=== PATIENT | male | born 1940 | race Caucasian/White ===

== ENCOUNTER 2020-01-29 16:05 | Outpatient (REF) | payer MEDICARE, SELFPAY ==
[2020-01-29 17:32] LABS: Blood Urea Nitrogen 26 mg/dL (9-16); Estimated Glomerular Filt Rate 46
== END 2020-01-29 16:06 | disposition home or self-care (01) ==
LOC: HO.LAB 16:05
PROVIDERS: PCP Internal Medicine; Visit Provider Internal Medicine
DX: Z01.812 Encounter for preprocedural laboratory examination (principal)
CPT/HCPCS: 82565; 84520

== ENCOUNTER 2020-02-04 15:35 | Outpatient (REF) | payer MEDICARE, SELFPAY ==
--- NOTE | 2020-02-04 | CT_ITS ---
EXAMINATION: CT CHEST WITH CONTRAST CLINICAL INFORMATION: Nodular density right upper lobe. COMPARISON: Chest x-ray 01/07/2020 TECHNIQUE: Multidetector volumetric CT imaging of the chest was obtained after the administration of 50 mL of Omnipaque 350 intravenous contrast without immediate adverse reactions. Axial MIP volume rendering provided. Sagittal and coronal reformatted images were obtained. This CT examination was performed using dose optimization techniques as appropriate, variously including the following: *Automated exposure control *Adjustment of mA and/or kV according to patient size (this includes techniques or standardized protocols for targeted exams where dose is matched to indication/reason for exam; i.e. extremities or head) *Use of iterative reconstruction technique DLP: 166 mGy-cm FINDINGS: ROUNDSMAN: Expanded lungs with nodular density right upper lobe. LUNGS: There is centrilobular emphysema with 3.4 x 1.8 cm lobulated lesion right upper lobe and a broad attachment to the underlying pleura highly suspicious for primary malignancy. There is ground-glass attenuation and pulmonary cyst seen in both upper lobes and both lower lobes. A few scattered punctate calcifications are seen in both lower lobes and both upper lobes likely old granulomatous disease. MEDIASTINUM: The central trachea and bronchi are widely patent. Heart size and the great vessels are normal caliber. No abnormal size mediastinal lymph nodes seen. There is no pericardial effusion. There are coronary artery calcifications present. PLEURA: There is no pleural effusion. No pleural mass or thickening. AXILLA: No lymphadenopathy. UPPER ABDOMEN: Visualized liver, spleen, pancreas, and bilateral adrenal glands are unremarkable. There is a 1.8 cm cyst upper pole right kidney. OSSEOUS STRUCTURES: No lytic or sclerotic process seen. CT/CT chest w con IMPRESSION: Diffuse centrilobular emphysema with extensive ground-glass attenuation and multiple pulmonary cysts. 3.4 cm mass right upper lobe with broad attachment to the anterior lateral pleural space. Recommend CT-guided biopsy. There is no abnormal mediastinal lymphadenopathy.
[2020-02-04] MEDS: iohexoL 350 MG/ML 100 ML INFUS..BTL IV (16:42)
== END 2020-02-04 15:36 | disposition home or self-care (01) ==
LOC: HO.CT 15:35
PROVIDERS: PCP Internal Medicine; Visit Provider Internal Medicine
DX: R91.1 Solitary pulmonary nodule (principal)
CPT/HCPCS: 71260

== ENCOUNTER → 2020-03-04 09:17 | Outpatient (BNVA) | payer MEDICARE, SELFPAY | PROVIDERS: PCP Internal Medicine; Visit Provider Surgery | DX: R91.1 Solitary pulmonary nodule (principal); J84.10 Pulmonary fibrosis, unspecified | CPT/HCPCS: 99205 ==

== ENCOUNTER 2020-03-08 15:42 | Outpatient (REF) | payer MEDICARE, SELFPAY ==
--- NOTE | 2020-03-08 17:33 | PFT_ITS ---
FLOWS: FEV1 of 98% of predicted at 2.30 L. FVC 97% of predicted at 3.63 L. FEV1 to FVC ratio of 0.72. No bronchodilator response. LUNG VOLUMES: Total lung capacity 85% of predicted at 5.66 L. Residual volume 81% of predicted at 2.06 L. Slow vital capacity 87% of predicted at 3.60 L. Expiratory reserve volume 6% of predicted at 0.07 L. Diffusion capacity severely diminished, diffusion capacity adjust to being moderately decreased after adjustment for alveolar ventilation. IMPRESSION: No obstructive or restrictive ventilatory defect. No bronchodilator response. Decreased diffusion capacity suggests emphysema. MD EDDIE Sim/MODL / [id number]
== END 2020-03-08 15:43 | disposition home or self-care (01) ==
LOC: HO.RESP 15:42
PROVIDERS: PCP Internal Medicine; Visit Provider Surgery
DX: Z01.818 Encounter for other preprocedural examination (principal); R91.1 Solitary pulmonary nodule
CPT/HCPCS: 94060; 94727; 94729

== ENCOUNTER 2020-03-15 11:00 | Outpatient (REF) | payer MEDICARE, SELFPAY ==
--- NOTE | 2020-03-15 07:58 | PE_ITS ---
EXAMINATION: Fluorine-18 FDG PET/CT Scan CLINICAL INDICATION: Initial treatment management. Lung mass PROCEDURE: 56 minutes following the intravenous administration of 14.5 mCi of fluorine 18 FDG, images from the base of the skull to the mid thighs were obtained using a combined PET/CT scanner with CT scan based attenuation correction. No oral contrast was administered. No intravenous contrast was administered. Transverse, coronal, sagittal, and volume reconstruction projections were obtained. The patient's blood glucose as determined by a finger stick, was 83 mg/dl immediately prior to injection. Total CT exam dose-length product 1023.14 mGy-cm COMPARISON: No previous PET/CT scan is available for comparison. CT scan of the chest dated 02/04/2020 is available for comparison. FINDINGS: (Slice numbers described in this report are numbered superiorly to inferiorly with slice #1 in the head) NECK AND VISUALIZED HEAD: No foci of abnormal FDG activity are noted. The distribution of FDG activity is physiological. There is no cervical lymphadenopathy. THORAX: There is a markedly FDG avid anterolateral pleural-based lobulated right upper lobe pulmonary mass showing SUVmax 8.8, slice 66/267. This irregular mass measures approximately 3.0 x 1.8 cm in largest transverse dimensions, and approximately 2.4 cm cephalocaudad. No additional foci of abnormal FDG activity are present in the chest. There is a 0.2 cm right middle lobe nodule visualized, corresponding to a calcified nodule at this site on the 02/04/2020 CT scan, likely a granuloma. A few additional scattered punctate calcifications seen on that prior CT scan are not apparent on these nondiagnostic CT images. Diffuse emphysema and cystic changes are again noted unchanged from 02/04/2020 and with no associated additional abnormal FDG activity. There is no pleural or pericardial fluid, or pneumothorax. There is no mediastinal, supraclavicular, or axillary lymphadenopathy. ABDOMEN AND PELVIS: No foci of abnormal FDG activity are present in the abdomen or pelvis. There is mild FDG activity throughout the gastrointestinal tract without a suspicious focal component, likely physiological. There is diverticulosis without evidence of diverticulitis. The hollow viscera are otherwise unremarkable. The liver, spleen, and gallbladder are unremarkable. There is a hypodense cyst in the upper pole of the right kidney. The kidneys are otherwise unremarkable. The adrenal glands and pancreas are unremarkable. There is no retroperitoneal, mesenteric, pelvic or inguinal lymphadenopathy. The prostate gland is mildly enlarged measuring 5.2 cm in largest transverse dimension. The pelvic organs are otherwise unremarkable. MUSCULOSKELETAL: No foci of abnormal FDG activity are present in the osseous structures. There are degenerative changes in the spine but no suspicious sclerotic or lytic lesions are present. There is some soft tissue calcifications medial to the intertrochanteric region of the proximal left femur, likely heterotopic calcification with no associated abnormal FDG activity. VASCULAR: Vascular calcifications including coronary are noted. PET/PET CT fusion skull to thigh IMPRESSION: 1. 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 2. No additional abnormalities suspicious for metastatic or other malignant lesions are noted. 3. Vascular calcifications including coronary.
== END 2020-03-15 11:01 | disposition home or self-care (01) ==
LOC: HO.PET 11:00
PROVIDERS: Visit Provider Surgery
DX: Z13.89 Encounter for screening for other disorder (principal)

== ENCOUNTER 2020-03-18 11:32 | Day surgery (SDC) | payer MEDICARE, SELFPAY ==
[2020-03-18] VITALS (10 sets, daily range): BP systolic 115–145; BP diastolic 64–83; PULSE 80–97; RESP 16–20; TEMP 36.8; O2SAT 91–98; BMI 25.0
--- NOTE | 2020-03-18 | XR_ITS ---
EXAMINATION: XR CHEST CLINICAL INFORMATION: Right-sided pneumothorax COMPARISON: Chest radiograph performed at 4:00 PM TECHNIQUE: Frontal view of the chest was obtained. FINDINGS: A convincing significant pneumothorax is not appreciated. Right upper lobe mass is again seen overlying the distal end of the first rib. XR/XR chest 1V IMPRESSION: A definite pneumothorax cannot be appreciated on the current study.
[2020-03-18 12:10] LABS: MANUAL DIFF FLAG NO
[2020-03-18 12:13] LABS: Basophils Percent Auto 0.2 % (0-2); Eosinophils Absolute Auto 0.2 X10*3/uL (0.0-0.4); Eosinophils Percent Auto 3.7 % (0-4); Hematocrit 33.9 % (42-52); Hemoglobin 10.7 g/dl (14.0-18.0); Imm Gran Abs Auto 0.01 X10*3/uL (0.00-0.03); Imm Gran Pct Auto 0.2 % (0.0-0.4); Mean Corpuscular HGB Conc 31.6 g/dl (31.0-36.0); Mean Platelet Volume 10.3 fL (9.4-12.4); Monocytes Absolute Auto 0.5 X10*3/uL (0.1-1.2); Monocytes Percent Auto 8.3 % (2-11); Neutrophils Absolute Auto 4.2 X10*3/uL (2.0-8.3); Neutrophils Percent Auto 70.6 % (45-73); Platelet Count 191 X10*3/uL (160-400); Red Blood Count 3.57 X10*6/uL (4.60-5.80); Red Cell Distribution Width 13.7 % (11.0-16.0); White Blood Count 5.9 X10*3/uL (4.8-10.8)
[2020-03-18 12:23] LABS: INTERNATIONAL NORM RATIO 1.1 (0.9-1.1); Prothrombin Time 12.5 SEC (10.8-13.0)
[2020-03-18 12:26] LABS: Partial Thromboplastin Time 33.7 SEC (24.1-38.0)
[2020-03-18 12:29] LABS: Anion Gap 12 (12-20); Carbon Dioxide 27 mmol/L (22-29); Chloride 107 mmol/L (96-108); Potassium 4.2 mmol/l (3.3-5.1); Sodium 142 mmol/L (135-145)
--- NOTE | 2020-03-18 12:42 | CT_ITS ---
PROCEDURE: CT GUIDED BIOPSY, LUNG CLINICAL INFORMATION: Solitary pulmonary nodule. COMPARISON: None TECHNIQUE: Following explanation of the CT fluoroscopy-guided right upper lobe nodule biopsy procedure, benefits and risk, a written consent was obtained. Patient was placed supine on CT table and preliminary CT imaging was obtained. An optimal site was selected along the right anterior chest wall and marked. The marked site was cleaned and draped in usual sterile manner. 1% lidocaine was injected at the puncture site. A 20-gauge guide needle was advanced under fluoroscopy to the right anterior chest wall just above the pleural surface. Coaxially 20-gauge needles were advanced and biopsy performed. Lastly the 20-gauge core needle was advanced into the right pulmonary nodule and needle biopsy was performed as a 4th pass. No core biopsy performed. Postprocedure repeat CT imaging was obtained. Sterile dressing was applied postprocedure. This CT examination was performed using dose optimization techniques as appropriate, variously including the following: *Automated exposure control *Adjustment of mA and/or kV according to patient size (this includes techniques or standardized protocols for targeted exams where dose is matched to indication/reason for exam; i.e. extremities or head) *Use of iterative reconstruction technique DLP: 185 mGy-cm FINDINGS: On preliminary CT imaging, there is a right upper lobe nodule measuring 2.5 x 2.5 cm axial image 13/4. There is extensive centrilobular emphysema in both upper lobes. Successful 3 pass fine-needle biopsy performed with a 22-gauge needle and a 4th needle biopsy was performed with a 20-gauge guide needle. Sample collected was submitted for immediate evaluation for histopathology and revealed adequate cells. Post procedure repeat imaging revealed no pneumothorax. CT/CT biopsy lung RT IMPRESSION: Successful CT fluoroscopy-guided right upper lobe fine-needle biopsy performed.
--- NOTE | 2020-03-18 15:35 | XR_ITS ---
EXAMINATION: XR CHEST CLINICAL INFORMATION: Status post right pulmonary nodule biopsy COMPARISON: CT scan of same day and chest of February 04, 2020 TECHNIQUE: AP portable view of the chest was obtained. FINDINGS: There is a small right apical pneumothorax identified. No mediastinal shift. Right upper lobe nodular density again noted. No pleural effusion. Heart normal size. No evidence of pulmonary edema. XR/XR chest 1V IMPRESSION: Small apical pneumothorax status post right lung biopsy. This critical result was discussed with Dr. Ta at 4:30 PM on March 18, 2020 and it was ascertained that the content and urgency of the report was understood at the time of direct communication.
[2020-03-18] MEDS: Gabapentin 300 MG CAPSULE 600 MG PO (17:05)
--- NOTE | 2020-03-18 17:06 | PC.NURSE ---
PER DR. BARRIGA NOTED PTX RIGHT SMALL. PLAN COMPLETE REPEAT CXR AT 1800. NEW ORDERS GIVEN FOR PATIENT HOME GABAPENTIN MEDICATION
--- NOTE | 2020-03-18 17:16 | PC.NURSE ---
DR. BARRIGA AT BEDSIDE TO EVALUATE PATIENT. RADIOLOGY AT BEDSIDE TO COMPLETE REPEAT CXR. RADIOLOGY TO UPDATE FAMILY
== END 2020-03-18 17:38 | disposition home or self-care (01) ==
PROVIDERS: Radiology Diagnostic Radiology; PCP Internal Medicine; Visit Provider Surgery
DX: C34.11 Malignant neoplasm of upper lobe, right bronchus or lung (principal); J95.811 Postprocedural pneumothorax; Y84.8 Other medical procedures as the cause of abnormal reaction of the patient, or of later complication, without mention of misadventure at the time of the procedure; Y92.234 Operating room of hospital as the place of occurrence of the external cause; Z86.73 Personal history of transient ischemic attack (TIA), and cerebral infarction without residual deficits; Z79.82 Long term (current) use of aspirin
CPT/HCPCS: 32405; 36415; 71045; 77012; 80051; 85025; 85610; 85730; 88172; 88173; 88177; 88305; 99152; J2250; J3010

== ENCOUNTER 2020-03-19 08:28 | Outpatient (REF) | payer MEDICARE, SELFPAY ==
--- NOTE | 2020-03-19 | XR_ITS ---
EXAMINATION: XR CHEST CLINICAL INFORMATION: Suspected right-sided pneumothorax. Status post lung biopsy. COMPARISON: Chest radiograph done following CT-guided lung biopsy on 03/18/2020. TECHNIQUE: Single frontal view of the chest done in inspiration and expiration. FINDINGS: Previously documented, biopsy proved right upper lobar lung mass is reidentified. No definite evidence of any right-sided pneumothorax. Specifically, on the expiratory radiograph, no evidence of any pneumothorax is seen. XR/XR chest 2V IMPRESSION: No radiographic evidence of right-sided pneumothorax. Clinically known previously biopsied right upper lobar lung mass is reidentified.
== END 2020-03-19 08:29 | disposition home or self-care (01) ==
LOC: HO.XRAY 08:28
PROVIDERS: PCP Internal Medicine; Visit Provider Radiology Diagnostic Radiology
DX: Z98.890 Other specified postprocedural states (principal)
CPT/HCPCS: 71046

== ENCOUNTER → 2020-04-01 08:52 | Outpatient (BNVA) | payer MEDICARE, SELFPAY | PROVIDERS: PCP Internal Medicine; Visit Provider Surgery | DX: J84.10 Pulmonary fibrosis, unspecified (principal); C34.11 Malignant neoplasm of upper lobe, right bronchus or lung | CPT/HCPCS: 99215 ==

== ENCOUNTER → 2020-04-29 15:25 | Outpatient (BNVA) | payer MEDICARE, SELFPAY | PROVIDERS: PCP Internal Medicine; Visit Provider Internal Medicine Pulmonary Disease | DX: R93.89 Abnormal findings on diagnostic imaging of other specified body structures (principal); R06.00 Dyspnea, unspecified | CPT/HCPCS: 99202 ==

== ENCOUNTER 2020-05-02 12:48 | Outpatient (REF) | payer MEDICARE, SELFPAY ==
[2020-05-02 13:33] LABS: Blood Urea Nitrogen 27 mg/dL (9-16); Estimated Glomerular Filt Rate 52
--- NOTE | 2020-05-02 13:50 | MR_ITS ---
MR BRAIN WITHOUT AND WITH CONTRAST CLINICAL INFORMATION: Malignant neoplasm of the upper lobe. COMPARISON: Head CT 03/15/2020. TECHNIQUE: Multiplanar, multisequence MRI of the brain was obtained before and after the intravenous administration of 9 mL Gadavist. FINDINGS: Chronic encephalomalacia, gliosis, and chronic hemosiderin staining within the right thalamus. 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 Accounting for artifact, no definite enhancing lesions to suggest intracranial metastatic disease. Focus of chronic hemosiderin staining within the right cerebellum. There is no hydrocephalus, extra-axial surface collection, or herniation. The major flow voids at the skull base are preserved. There is no acute infarct on diffusion-weighted imaging. The midline structures are normal. The cerebellar tonsils are normally positioned. The craniocervical junction is normal. Osseous marrow signal intensity is homogenous. The visualized soft tissues are unremarkable. MR/MR head/brain wo/w con IMPRESSION: - Accounting for artifact, there are no definite enhancing lesions to suggest intracranial metastatic disease. 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
== END 2020-05-02 12:49 | disposition home or self-care (01) ==
LOC: HO.MRI 12:48
PROVIDERS: Visit Provider Surgery
DX: C34.11 Malignant neoplasm of upper lobe, right bronchus or lung (principal); R91.1 Solitary pulmonary nodule; R51.9 Headache, unspecified; R42 Dizziness and giddiness
CPT/HCPCS: 36415; 70553; 82565; 84520; A9585